=== PATIENT | male | born 1945 | race Caucasian/White ===

== ENCOUNTER 2016-12-20 14:55 | Emergency (ER) | payer OTHER ==
--- NOTE | 2016-12-20 16:36 | ED CLINICAL REPORT ---
Clinical Report - Physicians/Mid Levels [facility] [address] [place] [address] 12/20/2016 14:57 Patient: LAYLA BARRAGAN Time Seen: 15:10 Dec 20 2016. Arrived- By private vehicle. Historian- patient, significant other and son. HISTORY OF PRESENT ILLNESS Chief Complaint: HEMATURIA. This started today and is still present. The problem is described as mild. No penile discharge or discomfort with urination. The patient has had urinary frequency. (patient is sexually active with one female partner, reports some frequency today, with hematuria. report some clots with discharge. Denies prostate problems in the past. Denies any h/o nephrolithiasis, does not actively have pain. Denies rectal pain. Denies std history). REVIEW OF SYSTEMS The patient has had fever and chills. The patient has had hematuria. No vomiting or sore throat. All systems otherwise negative, except as recorded above. PAST HISTORY Problems: SC. Additional Surgeries: Cardiac Stents. Triple bypass. Medications: Furosemide Oral. Lisinopril Oral. Atorvastatin Calcium Oral. Carvedilol Phosphate ER Oral. Allergies: None. SOCIAL HISTORY Never smoker. No alcohol use or drug use. ADDITIONAL NOTES The nursing notes have been reviewed. PHYSICAL EXAM Vital Signs: 12/20/2016 15:12 BP: 132/64. HR: 70. RR: 16. O2 saturation: 96%. Temp: 97.5 F. Appearance: Alert. ENT: Normal external inspection. Pharynx normal. Neck: Neck supple. CVS: Heart sounds normal. Respiratory: No respiratory distress. Breath sounds normal. No rales. Abdomen: Soft and nontender. Bowel sounds normal. No mass. No abdominal tenderness or mass present. Back: No CVA tenderness. : Normal genitalia. Testes descended. Mild tenderness of the right testicle. No tenderness of the right spermatic cord or testicular appendix. No urethral discharge, genital lesion, phimosis, hernia mass or scrotal swelling. (chaperoned exam with SALTY JUAREZ). Skin: Skin warm. Normal skin color. Neuro: Oriented X 3. LABS, X-RAYS, AND EKG Laboratory Tests: UA-Culture if indicated: (LILA: 12/20/2016 15:04) ( MsgRcvd 12/20/2016 15:29) Final results Test Result Flag Units (Reference) URINE COLOR RED URINE APPEARANCE TURBID URINE GLUCOSE NEGATIVE (NEGATIVE) URINE BILIRUBIN NEGATIVE (NEGATIVE) URINE KETONE NEGATIVE (NEGATIVE) URINE SPECIFIC GRAVITY 1.020 (1.010-1.030) URINE PH 5.5 (5.0-8.0) URINE PROTEIN 2+ (NEGATIVE) URINE UROBILINOGEN 0.2 EU/dL (0.2-1.0) URINE NITRITE NEGATIVE (NEGATIVE) URINE BLOOD 3+ (NEGATIVE) URINE LEUK ESTERASE POSITIVE (NEGATIVE) URINE RBC >100 rbc/hpf (0-1) URINE WBC >100 wbc/hpf (0-1) URINE EPITHELIAL CELLS 0-1 EPI/hpf (0-5) URINE BACTERIA FEW (1+) (NONE SEEN) URINE COMMENT CULTURE INDICATED URINE CULTURES ARE SET-UP BASED ON THE FOLLOWING CRITERIA:POSITIVE NITRITEPOSITIVE LEUKOCYTE ESTERASEGREATER THAN 10 WHITE BLOOD CELLSMODERATE (2+) OR GREATER BACTERIA . PROGRESS AND PROCEDURES Course of Care: patient here in the emergency department with signs of acute cystitis with setting of hematuria. Patient with good ability to output, no signs of obstruction. Patient with no pain, nephrolithiasis less likely. No history of similar. Signs of greater [id number] WBC, with leukocyte Estrace, will treat. Patient is urged to follow-up with his primary care doctor or urologist if symptoms persist. First dose antibiotic given here. Patient afebrile. 12/20/2016 15:12 BP: 132/64. HR: 70. RR: 16. O2 saturation: 96%. Temp: 97.5 F. Patient is stable. Symptoms better. Patient/family counseled. Disposition: Discharged. CLINICAL IMPRESSION Acute urinary tract infection with cystitis and hematuria. INSTRUCTIONS Drink plenty of fluids. Warnings: Further evaluation is necessary. Prescription Medications: Pyridium 100 mg: take 1 orally every 8 hours for 3 days as needed for urinary problems. Dispense ten (10). No refill. Substitution is permissible. Cipro 500 mg: take 1 tab orally every 12 hours for 7 days. No refills. Follow-up: Follow up with your doctor Friday. (Electronically signed by Lexii Castillo P.A.-C 12/20/2016 17:17)
--- NOTE | 2016-12-20 16:36 | ED CLINICAL REPORT ---
Clinical Report - Physicians/Mid Levels [facility] [address] [place] [address] 12/20/2016 14:57 Patient: LAYLA BARRAGAN Time Seen: 15:10 Dec 20 2016. Arrived- By private vehicle. Historian- patient, significant other and son. HISTORY OF PRESENT ILLNESS Chief Complaint: HEMATURIA. This started today and is still present. The problem is described as mild. No penile discharge or discomfort with urination. The patient has had urinary frequency. (patient is sexually active with one female partner, reports some frequency today, with hematuria. report some clots with discharge. Denies prostate problems in the past. Denies any h/o nephrolithiasis, does not actively have pain. Denies rectal pain. Denies std history). REVIEW OF SYSTEMS The patient has had fever and chills. The patient has had hematuria. No vomiting or sore throat. All systems otherwise negative, except as recorded above. PAST HISTORY Problems: SC. Additional Surgeries: Cardiac Stents. Triple bypass. Medications: Furosemide Oral. Lisinopril Oral. Atorvastatin Calcium Oral. Carvedilol Phosphate ER Oral. Allergies: None. SOCIAL HISTORY Never smoker. No alcohol use or drug use. ADDITIONAL NOTES The nursing notes have been reviewed. PHYSICAL EXAM Vital Signs: 12/20/2016 15:12 BP: 132/64. HR: 70. RR: 16. O2 saturation: 96%. Temp: 97.5 F. Appearance: Alert. ENT: Normal external inspection. Pharynx normal. Neck: Neck supple. CVS: Heart sounds normal. Respiratory: No respiratory distress. Breath sounds normal. No rales. Abdomen: Soft and nontender. Bowel sounds normal. No mass. No abdominal tenderness or mass present. Back: No CVA tenderness. : Normal genitalia. Testes descended. Mild tenderness of the right testicle. No tenderness of the right spermatic cord or testicular appendix. No urethral discharge, genital lesion, phimosis, hernia mass or scrotal swelling. (chaperoned exam with SALTY JUAREZ). Skin: Skin warm. Normal skin color. Neuro: Oriented X 3. LABS, X-RAYS, AND EKG Laboratory Tests: UA-Culture if indicated: (LILA: 12/20/2016 15:04) ( MsgRcvd 12/20/2016 15:29) Final results Test Result Flag Units (Reference) URINE COLOR RED URINE APPEARANCE TURBID URINE GLUCOSE NEGATIVE (NEGATIVE) URINE BILIRUBIN NEGATIVE (NEGATIVE) URINE KETONE NEGATIVE (NEGATIVE) URINE SPECIFIC GRAVITY 1.020 (1.010-1.030) URINE PH 5.5 (5.0-8.0) URINE PROTEIN 2+ (NEGATIVE) URINE UROBILINOGEN 0.2 EU/dL (0.2-1.0) URINE NITRITE NEGATIVE (NEGATIVE) URINE BLOOD 3+ (NEGATIVE) URINE LEUK ESTERASE POSITIVE (NEGATIVE) URINE RBC >100 rbc/hpf (0-1) URINE WBC >100 wbc/hpf (0-1) URINE EPITHELIAL CELLS 0-1 EPI/hpf (0-5) URINE BACTERIA FEW (1+) (NONE SEEN) URINE COMMENT CULTURE INDICATED URINE CULTURES ARE SET-UP BASED ON THE FOLLOWING CRITERIA:POSITIVE NITRITEPOSITIVE LEUKOCYTE ESTERASEGREATER THAN 10 WHITE BLOOD CELLSMODERATE (2+) OR GREATER BACTERIA . PROGRESS AND PROCEDURES Course of Care: patient here in the emergency department with signs of acute cystitis with setting of hematuria. Patient with good ability to output, no signs of obstruction. Patient with no pain, nephrolithiasis less likely. No history of similar. Signs of greater [id number] WBC, with leukocyte Estrace, will treat. Patient is urged to follow-up with his primary care doctor or urologist if symptoms persist. First dose antibiotic given here. Patient afebrile. 12/20/2016 15:12 BP: 132/64. HR: 70. RR: 16. O2 saturation: 96%. Temp: 97.5 F. Patient is stable. Symptoms better. Patient/family counseled. Disposition: Discharged. CLINICAL IMPRESSION Acute urinary tract infection with cystitis and hematuria. INSTRUCTIONS Drink plenty of fluids. Warnings: Further evaluation is necessary. Prescription Medications: Pyridium 100 mg: take 1 orally every 8 hours for 3 days as needed for urinary problems. Dispense ten (10). No refill. Substitution is permissible. Cipro 500 mg: take 1 tab orally every 12 hours for 7 days. No refills. Follow-up: Follow up with your doctor Friday. (Electronically signed by Lexii Castillo P.A.-C 12/20/2016 17:17)
--- NOTE | 2016-12-20 16:36 | ED ORDER SUMMARY ---
..... Patient: LAYLA BARRAGAN OrderSheet [facility] VisitID: [id number] [address] [place] [address] 71y, M Registration Date/Time: 12/20/2016 ORDER SHEET Weight: 92.9 kg (stated) Allergies: None GENERAL ORDERS: UA-Culture if indicated Urgent (15:03 12/20/2016 ASchmuck per protocol) (Ack 15:03 Katelynn) (15:14 ASchmuck) Bladder Scan (15:31 12/20/2016 EKoroleva P.A.-C) (15:43 ASchmuck) US Scrotum/Testicular Urgent (15:35 12/20/2016 EKoroleva P.A.-C) (Ack 15:36 Katelynn) (16:44 ASchmuck) MEDICATION ORDERS: Levaquin PO 750 mg (NOW) (16:36 12/20/2016 EKoroleva P.A.-C) (Ack 16:47 ASchmuck) (16:50 ASchmuck) Pyridium PO 200 mg (NOW) (16:36 12/20/2016 EKoroleva P.A.-C) (Ack 16:47 ASchmuck) (16:50 ASchmuck) IV FLUIDS: ORDER SHEET NOTES: [Electronically signed by Lexii Castillo P.A.-C (17:17 12/20/2016)] [Electronically signed by Radha Alejandro (19:17 12/20/2016)] [Electronically locked/signed by Radha Alejandro (19:17 12/20/2016)]
--- NOTE | 2016-12-20 16:36 | ED NURSING NOTES ---
Clinical Report - Nurses [facility] [address] [place] [address] 12/20/2016 14:57 Patient: LAYLA BARRAGAN TRIAGE Triage time 15:Dec 20 2016. Acuity: LEVEL 4. Chief Complaint: FREQUENCY VOIDING (Blood in urine). 15:12 12/20/16. Alert. No acute distress. SEPSIS SCREEN: Sepsis Screen. Negative (no infection suspected/documented). JOSH COMA SCORE: Josh Coma Scale: 15- eyes open spontaneously (4); best verbal response- oriented x 4 (5); best motor response- obeys commands (6). --15:13 Radha Alejandro 15:12 12/20/16. BP: 132/64. HR: 70. RR: 16. O2 saturation: 96%. Temp: 97.5 F. Pain level now 4/10. --15:13 Radha Alejandro. Weight: 92.9 kg stated. Height/Length: 71 inches Per Patient. BMI: 28.6. --15:11 Radha Alejandro. Medications Carvedilol Phosphate ER Oral. --15:06 Radha Alejandro Atorvastatin Calcium Oral. --15:07 Radha Alejandro Lisinopril Oral. --15:07 Radha Alejandro Furosemide Oral. --15:07 Radha Alejandro. Medication/allergy information source: the patient. --15:13 Radha Alejandro. Allergies None. --15:07 Radha Alejandro. History Arrived by private vehicle. Historian: patient. Accompanied by family. Primary physician (Shama). Onset. (This morning was blood). ( Pt reports frequent urge to urinate. Today started seeing blood in urine. Describes feeling in testicals, denies abd pain.). He has had a subjective fever with chills. He has had testicular pain, and urgency of urination. No discomfort with urination or inguinal swelling. Able to void. 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 PAST MEDICAL HX: No history of diabetes mellitus. No history of benign prostatic hypertrophy, sexually transmitted disease or UTI. Immunizations: up-to-date. SOCIAL HX: Never smoker. No alcohol use or drug use. FALL RISK ASSESSMENT: Fall risk assessment completed. No fall risk identified. NUTRITIONAL RISK ASSESSMENT: The nutritional risk assessment revealed no deficiencies. FUNCTIONAL ASSESSMENT: Functional assessment: no impairments noted. LEARNING NEEDS ASSESSMENT: The learning needs assessment revealed no barriers. SKIN INTEGRITY ASSESSMENT: Skin integrity risk assessment completed. No skin integrity risk identified. --15:13 Radha Alejandro. PROBLEMS: [place]. --15:08 Radha Alejandro. ADDITIONAL SURGERIES: Cardiac Stents. Triple bypass. --15:08 Radha Alejandro. Assessment The patient states feels the same. --15:13 Radha Alejandro. Interventions ID band on patient. --15:13 Radha Alejandro. PHYSICAL ASSESSMENT 15:13 12/20/16. Ambulatory to room. GENERAL / NEURO / PSYCH: Alert. Oriented X 4. Appears in no acute distress. HEENT: Mucous membranes are pink. RESPIRATORY: Respirations not labored. CVS: Capillary refill less than 2 seconds. GI / : Abdomen soft and nontender. SKIN: Skin is warm and dry. --15:13 Radha Alejandro. NURSING PROGRESS NOTES 15:12/20/16. The plan of care for this patient has been created. Head of bed elevated. Reassurance given. Patient ID band checked for patient name and birthdate: patient confirmed. Clean catch urine collected with return of red-colored clear urine; sample sent to lab for urinalysis and culture. Specimen labeled in the presence of the patient. Two patient identifiers checked. Call light placed in reach. Side rails up x 1. Bed placed in lowest position. Brakes of bed on. Patient ready for evaluation- chart flagged and ED physician and PA notified. --15:13 Radha Alejandro 15:44 12/20/16. ( Bladder scanner completed 3 times by RN, 5 times by medical supply technician, all results were 0 mL). --15:44 Radha Alejandro 16:50 12/20/2016 Levaquin (Levofloxacin) PO Tablets 750 mg given. Allergies verified and confirmed 5 rights. --16:50 Radha Alejandro 16:50 12/20/2016 Pyridium (Phenazopyridine HCl) PO Tablets 200 mg given. Allergies verified and confirmed 5 rights. --16:50 Radha Alejandro. DISPOSITION / DISCHARGE Departure time: 16:58 Demond 2016. Condition at departure: improved. The goals identified in the patient's plan of care were met. No learning barriers present. Discharge instructions provided and reviewed with the patient. Reviewed warnings (Patient verbalized awareness of warning s/sx listed in dc paperwork.). Reviewed medication(s) side effects, precautions, dosing and course information. Prescription(s) given to the patient (Pyridium, cipro). Treatments reviewed. Reviewed referral to a primary care physician for followup. Patient verbalized understanding. Written instructions provided in Scottish. The patient was discharged by the physician assistant store leader. He was discharged home and accompanied by parent. He left the Emergency Department ambulatory and via private vehicle. Family member driving. FALL RISK ASSESSMENT: Fall risk assessment completed. No fall risk identified. --19:16 Radha Alejandro 16:58 12/20/16. BP: 112/54. HR: 64. RR: 14. O2 saturation: 95% on room air. Temp: 98.1 F. Pain level now: 0/10. --19:16 Radha Alejandro. Locked/Released at 12/20/2016 19:17 by Radha Alejandro,
--- NOTE | 2016-12-20 16:36 | ED ORDER SUMMARY ---
..... Patient: LAYLA BARRAGAN OrderSheet [facility] VisitID: [id number] [address] [place] [address] 71y, M Registration Date/Time: 12/20/2016 ORDER SHEET Weight: 92.9 kg (stated) Allergies: None GENERAL ORDERS: UA-Culture if indicated Urgent (15:03 12/20/2016 ASchmuck per protocol) (Ack 15:03 Katelynn) (15:14 ASchmuck) Bladder Scan (15:31 12/20/2016 EKoroleva P.A.-C) (15:43 ASchmuck) US Scrotum/Testicular Urgent (15:35 12/20/2016 EKoroleva P.A.-C) (Ack 15:36 Katelynn) (16:44 ASchmuck) MEDICATION ORDERS: Levaquin PO 750 mg (NOW) (16:36 12/20/2016 EKoroleva P.A.-C) (Ack 16:47 ASchmuck) (16:50 ASchmuck) Pyridium PO 200 mg (NOW) (16:36 12/20/2016 EKoroleva P.A.-C) (Ack 16:47 ASchmuck) (16:50 ASchmuck) IV FLUIDS: ORDER SHEET NOTES: [Electronically signed by Lexii Castillo P.A.-C (17:17 12/20/2016)] [Electronically signed by Radha Alejandro (19:17 12/20/2016)] [Electronically locked/signed by Radha Alejandro (19:17 12/20/2016)]
--- NOTE | 2016-12-20 16:36 | ED NURSING NOTES ---
Clinical Report - Nurses [facility] [address] [place] [address] 12/20/2016 14:57 Patient: LAYLA BARRAGAN TRIAGE Triage time 15:Dec 20 2016. Acuity: LEVEL 4. Chief Complaint: FREQUENCY VOIDING (Blood in urine). 15:12 12/20/16. Alert. No acute distress. SEPSIS SCREEN: Sepsis Screen. Negative (no infection suspected/documented). JOSH COMA SCORE: Josh Coma Scale: 15- eyes open spontaneously (4); best verbal response- oriented x 4 (5); best motor response- obeys commands (6). --15:13 Radha Alejandro 15:12 12/20/16. BP: 132/64. HR: 70. RR: 16. O2 saturation: 96%. Temp: 97.5 F. Pain level now 4/10. --15:13 Radha Alejandro. Weight: 92.9 kg stated. Height/Length: 71 inches Per Patient. BMI: 28.6. --15:11 Radha Alejandro. Medications Carvedilol Phosphate ER Oral. --15:06 Radha Alejandro Atorvastatin Calcium Oral. --15:07 Radha Alejandro Lisinopril Oral. --15:07 Radha Alejandro Furosemide Oral. --15:07 Radha Alejandro. Medication/allergy information source: the patient. --15:13 Radha Alejandro. Allergies None. --15:07 Radha Alejandro. History Arrived by private vehicle. Historian: patient. Accompanied by family. Primary physician (Shama). Onset. (This morning was blood). ( Pt reports frequent urge to urinate. Today started seeing blood in urine. Describes feeling in testicals, denies abd pain.). He has had a subjective fever with chills. He has had testicular pain, and urgency of urination. No discomfort with urination or inguinal swelling. Able to void. 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 PAST MEDICAL HX: No history of diabetes mellitus. No history of benign prostatic hypertrophy, sexually transmitted disease or UTI. Immunizations: up-to-date. SOCIAL HX: Never smoker. No alcohol use or drug use. FALL RISK ASSESSMENT: Fall risk assessment completed. No fall risk identified. NUTRITIONAL RISK ASSESSMENT: The nutritional risk assessment revealed no deficiencies. FUNCTIONAL ASSESSMENT: Functional assessment: no impairments noted. LEARNING NEEDS ASSESSMENT: The learning needs assessment revealed no barriers. SKIN INTEGRITY ASSESSMENT: Skin integrity risk assessment completed. No skin integrity risk identified. --15:13 Radha Alejandro. PROBLEMS: [place]. --15:08 Radha Alejandro. ADDITIONAL SURGERIES: Cardiac Stents. Triple bypass. --15:08 Radha Alejandro. Assessment The patient states feels the same. --15:13 Radha Alejandro. Interventions ID band on patient. --15:13 Radha Alejandro. PHYSICAL ASSESSMENT 15:13 12/20/16. Ambulatory to room. GENERAL / NEURO / PSYCH: Alert. Oriented X 4. Appears in no acute distress. HEENT: Mucous membranes are pink. RESPIRATORY: Respirations not labored. CVS: Capillary refill less than 2 seconds. GI / : Abdomen soft and nontender. SKIN: Skin is warm and dry. --15:13 Radha Alejandro. NURSING PROGRESS NOTES 15:12/20/16. The plan of care for this patient has been created. Head of bed elevated. Reassurance given. Patient ID band checked for patient name and birthdate: patient confirmed. Clean catch urine collected with return of red-colored clear urine; sample sent to lab for urinalysis and culture. Specimen labeled in the presence of the patient. Two patient identifiers checked. Call light placed in reach. Side rails up x 1. Bed placed in lowest position. Brakes of bed on. Patient ready for evaluation- chart flagged and ED physician and PA notified. --15:13 Radha Alejandro 15:44 12/20/16. ( Bladder scanner completed 3 times by RN, 5 times by technical aide, all results were 0 mL). --15:44 Radha Alejandro 16:50 12/20/2016 Levaquin (Levofloxacin) PO Tablets 750 mg given. Allergies verified and confirmed 5 rights. --16:50 Radha Alejandro 16:50 12/20/2016 Pyridium (Phenazopyridine HCl) PO Tablets 200 mg given. Allergies verified and confirmed 5 rights. --16:50 Radha Alejandro. DISPOSITION / DISCHARGE Departure time: 16:58 Demond 2016. Condition at departure: improved. The goals identified in the patient's plan of care were met. No learning barriers present. Discharge instructions provided and reviewed with the patient. Reviewed warnings (Patient verbalized awareness of warning s/sx listed in dc paperwork.). Reviewed medication(s) side effects, precautions, dosing and course information. Prescription(s) given to the patient (Pyridium, cipro). Treatments reviewed. Reviewed referral to a primary care physician for followup. Patient verbalized understanding. Written instructions provided in Israeli. The patient was discharged by the physician commercial loan assistant. He was discharged home and accompanied by parent. He left the Emergency Department ambulatory and via private vehicle. Family member driving. FALL RISK ASSESSMENT: Fall risk assessment completed. No fall risk identified. --19:16 Radha Alejandro 16:58 12/20/16. BP: 112/54. HR: 64. RR: 14. O2 saturation: 95% on room air. Temp: 98.1 F. Pain level now: 0/10. --19:16 Radha Alejandro. Locked/Released at 12/20/2016 19:17 by Radha Alejandro,
--- NOTE | 2016-12-20 17:45 | DIAGNOSTIC IMAGING REPORT ---
PROCEDURE: US SCROTUM/TESTICLE INDICATION: SCROTAL PAIN TECHNIQUE: Brown scale and color Doppler sonographic images through the scrotum were obtained. COMPARISON: None. FINDINGS: The right testicle measures 3.8 x 2.7 x 3.1 cm and the left measures 4.0 x 2.3 x 2.6 cm Both testicles demonstrate homogeneous echotexture without solid mass, cyst, or numerous microcalcifications. Color Doppler imaging demonstrates normal and symmetric arterial and venous testicular flow. No suspicious hyperemia. The epididymi are normal in size, echotexture, and vascularity. There is a small left epididymal head cyst measuring 4 mm. Moderate sized hydrocele is present bilaterally. Trace amount of debris within the hydrocele bilaterally. There is a linear calcification measuring 2 mm x 9 mm in the dorsal aspects of the right scrotum. No significant scrotal skin thickening. The visible portion the prostate is approximately 2.9 x 2.8 x 2.0, grossly normal. The urinary bladder was not filled and has a volume of less than 2 ml. IMPRESSION: 1. Normal sonographic testicular morphology. 2. Moderate size bilateral debris containing hydroceles. 3. Unfilled bladder and nonenlarged prostate. 4. Dystrophic 9 mm linear right scrotal calcification. 5. Tiny left epididymal head cyst.
--- NOTE | 2016-12-20 19:17 | ED MED RECONCILIATION SUMMARY ---
Patient: LAYLA BARRAGAN Medication Reconciliation Report [facility] VisitID: [id number] [address] [place] [address] 71y, M Registration Date/Time: 12/20/2016 Weight: 92.9 kg Height/Length: 71 in. BMI: 28.6 ALLERGIES: None The patient's Home Medications are listed below: THE FOLLOWING MEDICATIONS NEED TO BE RECONCILED: Atorvastatin Calcium Oral Carvedilol Phosphate ER Oral Furosemide Oral Lisinopril Oral The source(s) of the original Home Medication information: patient The following Medications were given to the patient in the Emergency Department: Levaquin [PO] PO 750 mg, administered: 12/20/2016 4:50:00 PM Pyridium [PO] PO 200 mg, administered: 12/20/2016 4:50:00 PM The following Medications were prescribed to the patient: Pyridium 100 mg: take 1 orally every 8 hours for 3 days as needed for urinary problems. Dispense ten (10). No refill. Substitution is permissible. -- Lexii Castillo, P.A.-[place] Cipro 500 mg: take 1 tab orally every 12 hours for 7 days. No refills. -- Lexii Castillo, P.A.-[place]
--- NOTE | 2016-12-20 19:17 | ED DISCHARGE INSTRUCTIONS ---
Patient: LAYLA BARRAGAN General Instructions [facility] VisitID: [id number] [place] [address] 71y, M Registration Date/Time: 12/20/2016 Acute urinary tract infection with cystitis and hematuria. INSTRUCTIONS Drink plenty of fluids. Warnings: Further evaluation is necessary. Prescription Medications: Pyridium 100 mg: take 1 orally every 8 hours for 3 days as needed for urinary problems. Dispense ten (10). No refill. Substitution is permissible. Cipro 500 mg: take 1 tab orally every 12 hours for 7 days. No refills. Follow-up: Follow up with your doctor Friday. ADDITIONAL INFORMATION Bladder Infection,Male (Adult) A bladder infection ("cystitis" or "UTI") usually causes a constant urge to urinate, and a burning when passing urine. Urine may be cloudy, smelly or dark. There may be also be pain in the lower abdomen. Cystitis in males is not common. It may be caused by a partial blockage in the urinary system that keeps the bladder from emptying completely. This is most often related to an enlarged prostate gland. Home Care: Drink lots of fluids (at least 6-8 glasses a day). This will flush the bacteria out of your bladder. Avoid sexual intercourse until your symptoms are gone. Avoid caffeine, alcohol, and spicy foods. They could irritate the bladder. A bladder infection is treated with antibiotics. You may also be given Pyridium (generic - phenazopyridine) to reduce burning with urination. This will cause urine to become a bright orange color, which can stain clothing. Follow Up with your doctor or this facility if ALL symptoms have not cleared within five days. It is important to keep your follow up appointment to discuss with your doctor the need for further tests of the urinary tract. Get Prompt Medical Attention if any of the following occur: Fever of 100.4F (38C) or higher, or as directed by your healthcare provider No improvement by the third day of treatment Increasing back or abdominal pain Repeated vomiting; unable to keep medicine down Weakness, dizziness or fainting Blood In The Urine Blood in the urine ("hematuria") has many possible causes. If it occurs after an injury (such as a car accident or fall), it is most often a sign of bruising to the kidney or bladder. Common medical causes of blood in the urine include urinary tract infection, kidney stone, inflammation, tumors, or certain other diseases of the kidney or bladder. Menstruation can cause blood to appear in the urine sample, although it is not coming from the urinary tract. If only a trace amount of blood is present, it will show up on the urine test, even though the urine may be yellow and not pink or red. This may occur with any of the above conditions, as well as heavy exercise or high fever. In this case, your doctor may want to repeat the urine test on another day. This will show if the blood is still present. If so, then other tests can be done to find out the cause. Home Care: If your urine does not appear bloody (pink, brown or red) then you do not need to restrict your activity in any way. If you can see blood in your urine, rest and avoid heavy exertion until your next exam. Do not use aspirin or anti-inflammatory medicine like ibuprofen (Motrin, Advil) or naproxen (Naprosyn, Aleve). These thin the blood and may increase bleeding. Follow Up with your doctor or as advised by our staff. If you were injured and had blood in your urine, you should have a repeat urine test in 1-2 days. Contact your doctor or return to this facility for this test. [NOTE: A radiologist will review any X-rays that were taken. We will notify you of any new findings that may affect your care.] Get Prompt Medical Attention if any of the following occur: Bright red blood or blood clots in the urine (if a new symptom) Weakness, dizziness or fainting New groin, abdominal or back pain Fever of 100.4F (38C) or higher, or as directed by your healthcare provider Repeated vomiting Bleeding from nose, gums or easy bruising Phenazopyridine Hydrochloride Oral tablet What is this medicine? PHENAZOPYRIDINE (fen az oh PEER i [place]) is a pain reliever. It is used to stop the pain, burning, or discomfort caused by infection or irritation of the urinary tract. This medicine is not an antibiotic. It will not cure a urinary tract infection. How should I use this medicine? Take this medicine by mouth with a glass of water. Follow the directions on the prescription label. Take after meals. Take your doses at regular intervals. Do not take your medicine more often than directed. Do not skip doses or stop your medicine early even if you feel better. Do not stop taking except on your doctor's advice. Talk to your cytology manager regarding the use of this medicine in children. Special care may be needed. What side effects may I notice from receiving this medicine? Side effects that you should report to your doctor or health behavioral health care coordinator as soon as possible: allergic reactions like skin rash, itching or hives, swelling of the face, lips, or tongue blue or purple color of the skin difficulty breathing fever less urine unusual bleeding, bruising unusual tired, weak vomiting yellowing of the eyes or skin Side effects that usually do not require medical attention (report to your doctor or health behavioral health care coordinator if they continue or are bothersome): dark urine headache stomach upset What may interact with this medicine? Interactions are not expected. What if I miss a dose? If you miss a dose, take it as soon as you can. If it is almost time for your next dose, take only that dose. Do not take double or extra doses. Where should I keep my medicine? Keep out of the reach of children. Store at room temperature between 15 and 30 degrees C (59 and 86 degrees F). Protect from light and moisture. Throw away any unused medicine after the expiration date. What should I tell my health care provider before I take this medicine? They need to know if you have any of these conditions: [id number] dehydrogenase (G6PD) deficiency kidney disease an unusual or allergic reaction to phenazopyridine, other medicines, foods, dyes, or preservatives or trying to get breast-feeding What should I watch for while using this medicine? Tell your doctor or health behavioral health care coordinator if your symptoms do not improve or if they get worse. This medicine colors body fluids red. This effect is harmless and will go away after you are done taking the medicine. It will change urine to an dark orange or red color. The red color may stain clothing. Soft contact lenses may become permanently stained. It is best not to wear soft contact lenses while taking this medicine. If you are diabetic you may get a false positive result for sugar in your urine. Talk to your health care provider. Ciprofloxacin Hydrochloride Oral tablet What is this medicine? CIPROFLOXACIN (sip alana FLOX a sin) is a quinolone antibiotic. It is used to treat certain kinds of bacterial infections. It will not work for colds, flu, or other viral infections. How should I use this medicine? Take this medicine by mouth with a glass of water. Follow the directions on the prescription label. Take your medicine at regular intervals. Do not take your medicine more often than directed. Take all of your medicine as directed even if you think your are better. Do not skip doses or stop your medicine early. You can take this medicine with food or on an empty stomach. It can be taken with a meal that contains dairy or calcium, but do not take it alone with a dairy product, like milk or yogurt or calcium-fortified juice. A special MedGuide will be given to you by the pharmacist with each prescription and refill. Be sure to read this information carefully each time. Talk to your cytology manager regarding the use of this medicine in children. Special care may be needed. What side effects may I notice from receiving this medicine? Side effects that you should report to your doctor or health behavioral health care coordinator as soon as possible: - allergic reactions like skin rash, itching or hives, swelling of the face, lips, or tongue - breathing problems - confusion, nightmares or hallucinations - feeling faint or lightheaded, falls - irregular heartbeat - joint, muscle or tendon pain or swelling - pain or trouble passing urine -persistent headache with or without blurred vision - redness, blistering, peeling or loosening of the skin, including inside the mouth - seizure - unusual pain, numbness, tingling, or weakness Side effects that usually do not require medical attention (report to your doctor or health behavioral health care coordinator if they continue or are bothersome): - diarrhea - nausea or stomach upset - white patches or sores in the mouth What may interact with this medicine? Do not take this medicine with any of the following medications: cisapride droperidol terfenadine tizanidine This medicine may also interact with the following medications: antacids caffeine cyclosporin didanosine (ddI) buffered tablets or powder medicines for diabetes medicines for inflammation like ibuprofen, naproxen methotrexate multivitamins omeprazole phenytoin probenecid sucralfate theophylline warfarin What if I miss a dose? If you miss a dose, take it as soon as you can. If it is almost time for your next dose, take only that dose. Do not take double or extra doses. Where should I keep my medicine? Keep out of the reach of children. Store at room temperature below 30 degrees C (86 degrees F). Keep container tightly closed. Throw away any unused medicine after the expiration date. What should I tell my health care provider before I take this medicine? They need to know if you have any of these conditions: -bone problems -cerebral disease -joint problems -irregular heartbeat -kidney disease -liver disease -myasthenia gravis -seizure disorder -tendon problems -an unusual or allergic reaction to ciprofloxacin, other antibiotics or medicines, foods, dyes, or preservatives - or trying to get -breast-feeding What should I watch for while using this medicine? Tell your doctor or health behavioral health care coordinator if your symptoms do not improve. Do not treat diarrhea with over the counter products. Contact your doctor if you have diarrhea that lasts more than 2 days or if it is severe and watery. You may get drowsy or dizzy. Do not drive, use machinery, or do anything that needs mental alertness until you know how this medicine affects you. Do not stand or sit up quickly, especially if you are an older patient. This reduces the risk of dizzy or fainting spells. This medicine can make you more sensitive to the sun. Keep out of the sun. If you cannot avoid being in the sun, wear protective clothing and use sunscreen. Do not use sun lamps or tanning beds/booths. Avoid antacids, aluminum, calcium, iron, magnesium, and zinc products for 6 hours before and 2 hours after taking a dose of this medicine. You have been given the following additional information: Bladder Infection, Male (Adult) Hematuria Phenazopyridine Hydrochloride Oral tablet Ciprofloxacin Hydrochloride Oral tablet (Electronically signed by Lexii Castillo P.A.-C 12/20/2016 17:17)
--- NOTE | 2016-12-20 19:17 | ED MED RECONCILIATION SUMMARY ---
Patient: LAYLA BARRAGAN Medication Reconciliation Report [facility] VisitID: [id number] [address] [place] [address] 71y, M Registration Date/Time: 12/20/2016 Weight: 92.9 kg Height/Length: 71 in. BMI: 28.6 ALLERGIES: None The patient's Home Medications are listed below: THE FOLLOWING MEDICATIONS NEED TO BE RECONCILED: Atorvastatin Calcium Oral Carvedilol Phosphate ER Oral Furosemide Oral Lisinopril Oral The source(s) of the original Home Medication information: patient The following Medications were given to the patient in the Emergency Department: Levaquin [PO] PO 750 mg, administered: 12/20/2016 4:50:00 PM Pyridium [PO] PO 200 mg, administered: 12/20/2016 4:50:00 PM The following Medications were prescribed to the patient: Pyridium 100 mg: take 1 orally every 8 hours for 3 days as needed for urinary problems. Dispense ten (10). No refill. Substitution is permissible. -- Lexii Castillo, P.A.-[place] Cipro 500 mg: take 1 tab orally every 12 hours for 7 days. No refills. -- Lexii Castillo, P.A.-[place]
--- NOTE | 2016-12-20 19:17 | ED MAR SUMMARY ---
..... Medication Administration Record [facility] [address] [place] [address] Patient: LAYLA BARRAGAN Visit ID: [id number] 71y, M Weight: 92.9 kg Height/Length: 71 in BMI: 28.6 ALLERGIES: None Given 16:50 12/20/2016 Radha Alejandro, Medication Administered: LEVAQUIN [PO] (LEVOFLOXACIN), Dose: 750 mg Tablets PO. Medication Ordered: Levaquin PO 750 mg (NOW). Given 16:50 12/20/2016 Radha Alejandro, Medication Administered: PYRIDIUM [PO] (PHENAZOPYRIDINE HCL), Dose: 200 mg Tablets PO. Medication Ordered: Pyridium PO 200 mg (NOW).
--- NOTE | 2016-12-20 19:17 | ED MAR SUMMARY ---
..... Medication Administration Record [facility] [address] [place] [address] Patient: LAYLA BARRAGAN Visit ID: [id number] 71y, M Weight: 92.9 kg Height/Length: 71 in BMI: 28.6 ALLERGIES: None Given 16:50 12/20/2016 Radha Alejandro, Medication Administered: LEVAQUIN [PO] (LEVOFLOXACIN), Dose: 750 mg Tablets PO. Medication Ordered: Levaquin PO 750 mg (NOW). Given 16:50 12/20/2016 Radha Alejandro, Medication Administered: PYRIDIUM [PO] (PHENAZOPYRIDINE HCL), Dose: 200 mg Tablets PO. Medication Ordered: Pyridium PO 200 mg (NOW).
== END 2016-12-20 16:58 | disposition home or self-care (01) ==
LOC: ED SRH 14:55
DX: N30.91 Cystitis, unspecified with hematuria (principal); Z79.899 Other long term (current) drug therapy
CPT/HCPCS: 90004; 90148; 90469